=== PATIENT | male | born 1955 | race Caucasian/White ===

== ENCOUNTER 2023-11-27 20:31 | Inpatient (IN) | payer OTHER, MEDICAID ==
[~2023-11-27] VITALS: Ht 170.2 cm; Wt 68.0 kg
[2023-11-27 20:40] VITALS: BP_SYST 99; PULSE 75; RESP 16; TEMP 97.8; O2SAT 95
[2023-11-27 21:09] LABS: MEAN CORPUSCULAR HEMOGLOBIN 30 pg (27-31); MEAN CORPUSCULAR HGB CONC 33 % (32-36); MEAN CORPUSCULAR VOLUME 92 fL (79.0-98.0); PLATELET COUNT (AUTO) 196 K/uL (130-430); RED BLOOD CELL COUNT(AUTO) 2.13 MIL/uL (4.2-6.2); RED CELL DISTRIBUTION WIDTH 18.9 % (9.0-15.0); WHITE BLOOD COUNT (AUTO) 4.4 K/uL (4.8-10.8)
[2023-11-27 21:15] LABS: HEMATOCRIT 19.6 % (36-54); HEMOGLOBIN 6.5 g/dL (14.0-18.0)
[2023-11-27 21:18] LABS: ALANINE AMINOTRANSFERASE 14 U/L (12-78); ALBUMIN 2.1 g/dL (3.4-4.8); ANION GAP 7 (5-15); ASPARTATE AMINOTRANSFERASE 7 U/L (10-37); BILIRUBIN,DIRECT 0.1 mg/dL (0.0-0.3); CALCIUM 7.5 mg/dL (8.4-11.0); CARBON DIOXIDE 27 mmol/L (23-29); CHLORIDE 105 mmol/L (98-107); CREATININE 1.92 mg/dL (0.55-1.30); GFR AFRICAN AMERICAN 45 mL/min (>90); GLUCOSE 184 mg/dL (74-106); LIPASE 44 U/L (16-77); POTASSIUM 4.3 mmol/L (3.5-5.1); SODIUM SERUM 139 mmol/L (136-145); TOTAL BILIRUBIN 0.2 mg/dL (0.0-1.0); TOTAL PROTEIN, SERUM 4.9 g/dL (6.4-8.3); UREA NITROGEN, BLOOD 35 mg/dL (8-21)
[2023-11-27 21:20] LABS: ALCOHOL, BLOOD < 3 mg/dL (<10); GFR NON AFRICAN-AMERICAN 37 mL/min (>90)
[2023-11-27 21:24] LABS: ANISOCYTOSIS 1+; BAND % (MANUAL) 0 % (0-6); BASOPHILS % (MANUAL) 0 % (0-2); EOSINOPHILS % (MANUAL) 2 % (0-7); LYMPHOCYTES % (MANUAL) 22 % (20-46); MONOCYTES % (MANUAL) 11 % (0-11); PLATELET ESTIMATE ADEQUATE (ADEQUATE)
[2023-11-27 21:25] LABS: OVALOCYTES FEW; TEAR DROP CELLS RARE
[2023-11-27] MEDS: NACL 0.9% 1,000 ML IV ONE (22:11)
[2023-11-27] MEDS: ONDANSETRON HCL 4 MG/2 ML VIAL IVP ONE (22:14)
[2023-11-27 22:30] VITALS: O2SAT 97
[2023-11-27 22:43] VITALS: BP_SYST 128; PULSE 69; RESP 20; TEMP 98.6
[2023-11-28] VITALS: BP_SYST 129; PULSE 69; RESP 19; TEMP 97.5; O2SAT 98
[2023-11-28] MEDS: D5/0.45 NS 1,000 ML IV ONE (01:54)
[2023-11-28] MEDS: PANTOPRAZOLE SODIUM 40 MG/VIAL (PROTONIX) IVP SCH (01:54)
[2023-11-28 07:50] VITALS: BP_SYST 176; PULSE 68; RESP 18; TEMP 96.8; O2SAT 95
[2023-11-28 09:49] LABS: HEMATOCRIT 31.9 % (36-54); HEMOGLOBIN 10.5 g/dL (14.0-18.0)
[2023-11-28] MEDS ORDERED: PANTOPRAZOLE SODIUM 40 MG in NS 50 ML IV SCH (11:00)
== END 2023-11-28 09:57 | disposition left against medical advice (07) | DRG 377 ==
LOC: SED 20:31 → STU 21:36
PROVIDERS: ADMIT Preventive Medicine Preventive Medicine/Occupational Environmental Medicine; ATTEND Preventive Medicine Preventive Medicine/Occupational Environmental Medicine
PROC: 30233N1 Transfusion of Nonautologous Red Blood Cells into Peripheral Vein, Percutaneous Approach (ICD-10-PCS; principal; 2023-11-28)
DX: K92.2 Gastrointestinal hemorrhage, unspecified (principal); G92.8 Other toxic encephalopathy; N17.9 Acute kidney failure, unspecified; T40.711A Poisoning by cannabis, accidental (unintentional), initial encounter; D64.9 Anemia, unspecified; I10 Essential (primary) hypertension; E11.9 Type 2 diabetes mellitus without complications; F12.920 Cannabis use, unspecified with intoxication, uncomplicated; N18.9 Chronic kidney disease, unspecified; Z87.11 Personal history of peptic ulcer disease; Z79.899 Other long term (current) drug therapy; Z88.8 Allergy status to other drugs, medicaments and biological substances
CPT/HCPCS: 36415; 80048; 80076; 83690; 85007; 85018; 85027; 86886; 86900; 86901; 86920; 93005; 96374; 99285; G0378; G0482; J2405; J2470; P9021